=== PATIENT | male | born 1955 ===

== ENCOUNTER 2017-04-14 06:14 | Day surgery (SDC) | payer MEDICARE, OTHER ==
[2017-04-07 10:05] VITALS: BMI 34.9
[2017-04-14 07:13] LABS: BASO # 0.04 K/mm3 (0.0-2.0); BASO % 0.4 % (0.0-3.0); EOS # 0.3 (0.0-0.7); EOS % 2.7 % (1.5-5.0); GRAN # 7.01 (1.4-6.5); GRAN % 68.7 % (50.0-68.0); HEMOGLOBIN 13.7 g/dL (14.0-18.0); LYMPH # 2.2 (1.2-3.4); LYMPH % 21.9 % (22.0-35.0); MEAN CORPUSCULAR HEMOGLOBIN 26.1 pg (25.0-35.0); MEAN CORPUSCULAR HGB CONC 32.7 g/dl (31.0-37.0); MEAN PLATELET VOLUME 10.1 fl (7.0-11.0); MONO # 0.6 (0.1-0.6); MONO % 6.3 % (1.0-6.0); RBC 5.24 10^6/uL (3.5-6.1); RED CELL DISTRIBUTION WIDTH 14.5 % (11.5-14.5); WHITE BLOOD COUNT 10.2 10^3/ul (4.5-11.0)
[2017-04-14 07:21] LABS: INR 1.03 (0.93-1.08); PARTIAL THROMBOPLASTIN TIME 29.2 Seconds (25.1-36.5); PROTHROMBIN TIME 11.9 SECONDS (9.4-12.5)
[2017-04-14 07:28] LABS: BLOOD UREA NITROGEN 13 mg/dL (7-21); CALCIUM 9.5 mg/dL (8.4-10.5); GFR AFRICAN-AMERICAN > 60; GFR NON-AFRICAN AMERICAN > 60
[2017-04-14] MEDS ORDERED: Potassium Chloride 20 mEq ER Tab PO ONE ×3 (07:57→17:00)
[2017-04-14] MEDS ORDERED: Lidocaine 2% Inj (20ml) ONE (09:48)
[2017-04-14] MEDS ORDERED: HEPARIN SODIUM/NS 2,000 ML IV ONE (09:49)
[2017-04-14] MEDS ORDERED: Iohexol 350mgl/ml 50 ML ONE (10:02)
[2017-04-14] MEDS ORDERED: Iohexol 350 MG/100 ML VIAL ONE ×2 (10:02→10:44)
[2017-04-14] MEDS ORDERED: Phenylephrine 10 mg/ml Inj ONE (10:02)
[2017-04-14] MEDS ORDERED: Midazolam 2 MG/2 ML VIAL ONE ×2 (10:06→10:25)
[2017-04-14] MEDS ORDERED: Sodium Chloride 0.9% 1,000 ML IV SCH (11:15)
--- NOTE | 2017-04-14 12:44 | CARDCATH ---
PROCEDURE DATE: 04/14/2017 HISTORY: The patient is a 61-year-old male who presents with chest pain and abnormal stress test. He suffers from diabetes mellitus, hypertension and hypercholesterolemia. He is status post coronary artery bypass surgery. PROCEDURES: Left heart catheterization with coronary arteriography, bypass grafting angiogram as well as percutaneous transluminal coronary angioplasty and stent. The right femoral artery was cannulated with a 6-Jordanian sheath. There were no complications. I performed moderate sedation, which included the presence of an independent trained observer that assisted in monitoring the patient's level of consciousness and physiologic status. After administration of fentanyl and Versed, my intra-service time was 30 minutes. The findings upon catheterization revealed left ventricle contracted normally. Estimated ejection fraction is 65%. His coronary arteries revealed an occluded RCA. The left main artery revealed an 80% distal stenosis. The LAD was occluded in its mid portion. The circumflex artery revealed diffuse atherosclerosis with an obtuse marginal branch that was compromised with stenosis. The CRAIAS to the LAD was patent and provided good antegrade flow to the mid and distal LAD. The saphenous vein graft to the obtuse marginal branch-1 and the posterior lateral branch were patent and provided good antegrade flow. There was SVG to the diagonal that was patent and provided good antegrade flow. The vein graft to the RCA was patent and provided good flow to the mid and distal RCA. After the anastomotic site, there was a 99% stenosis in the RCA. The patient was started on intravenous Angiomax on the fluoroscopic guide, the guiding catheter was placed in the ostium of the SVG. An 0.014 ATW wire was used to cross the critical lesion. A 2.0 balloon was utilized to pre-dilate the lesion. This was followed by placing a 3.0 x12 mm drug-eluting stent in the lesion after the vein graft anastomotic site. Postdilatation was performed with a 3.5 noncompliant balloon. Repeat coronary arteriography revealed an excellent result with resolution of the critical stenosis and no residual stenosis. Angio-Seal was used to close the femoral artery site. The patient tolerated the procedure well. In summary, the procedure was successful for PTCA and stent of a 99% stenosis in the mid RCA with a drug-eluting stent. Patient's coronary anatomy revealed triple vessel CAD as well as a critical left main stenosis. Patent CARIAS to the LAD was noted. Patent SVG to the OM-1 and posterolateral branch. Patent SVG to the diagonal vessel. Patent SVG to the RCA with a 99% stenosis distal to the anastomotic site. Given these findings, the patient will need to remain on aspirin indefinitely and Plavix for at least a year and undergo strict cardiac risk reduction program. Ihsan Mayfield MD
--- NOTE | 2017-04-14 17:26 | CARD ---
APPROVED REPORT EKG Measurement Heart [id number] MA 180P44 [id number] <Conclusion> Normal sinus rhythm Normal ECG
--- NOTE | 2017-04-14 17:31 | CARD ---
APPROVED REPORT EKG Measurement Heart [id number] CO 174P33 [id number] <Conclusion> Normal sinus rhythm Normal ECG
[2017-04-14] MEDS: Insulin Reg-HIGH-Coverage SC SCH ×2 (17:46→22:10)
[2017-04-15 07:09] LABS: BASO # 0.04 K/mm3 (0.0-2.0); BASO % 0.4 % (0.0-3.0); EOS # 0.2 (0.0-0.7); EOS % 2.5 % (1.5-5.0); GRAN # 5.81 (1.4-6.5); GRAN % 65.4 % (50.0-68.0); HEMOGLOBIN 14.4 g/dL (14.0-18.0); LYMPH # 2.2 (1.2-3.4); LYMPH % 24.3 % (22.0-35.0); MEAN CORPUSCULAR HEMOGLOBIN 26.2 pg (25.0-35.0); MEAN CORPUSCULAR HGB CONC 32.8 g/dl (31.0-37.0); MEAN PLATELET VOLUME 9.9 fl (7.0-11.0); MONO # 0.7 (0.1-0.6); MONO % 7.4 % (1.0-6.0); RBC 5.49 10^6/uL (3.5-6.1); RED CELL DISTRIBUTION WIDTH 14.7 % (11.5-14.5); WHITE BLOOD COUNT 8.9 10^3/ul (4.5-11.0)
[2017-04-15 07:31] LABS: BLOOD UREA NITROGEN 11 mg/dL (7-21); CALCIUM 9.6 mg/dL (8.4-10.5); GFR AFRICAN-AMERICAN > 60; GFR NON-AFRICAN AMERICAN > 60
[2017-04-15] MEDS: Insulin Reg-HIGH-Coverage SC SCH ×2 (07:40→12:25)
[2017-04-15] MEDS ORDERED: Metoprolol Succinate 100 mg XL Tab PO SCH (08:00)
[2017-04-15 12:10] VITALS: BP 138/74; PULSE 70; RESP 18; TEMP 98.1; O2SAT 98
--- NOTE | 2017-04-15 16:14 | PN ---
DATE: 04/15/2017 LOCATION: The patient is in room 265, bed 2. This progress note is being dictated on behalf of Dr. Mayfield whom I am covering. REASON FOR CONSULTATION AND FOLLOWUP: Coronary artery disease, diabetes, hypertension, hypercholesterolemia, status post coronary artery bypass surgery, status post coronary angioplasty and stent insertion. SUBJECTIVE: The patient is lying flat in bed without any chest pain, shortness of breath, or palpitation. Cath site is showing no bleeding, no hematoma. Pulses are felt normally. PHYSICAL EXAMINATION: VITAL SIGNS: Blood pressure 144/90, respirations 20, pulse 88, temperature 97.8. HEENT: Head is normal. Conjunctivae normal. Nose and throat normal. NECK: JVP low. Carotid equal. THORAX: AP diameter normal. LUNGS: Clear. CARDIOVASCULAR: S1, S2. ABDOMEN: Soft, nontender. No organomegaly. EXTREMITIES: No clubbing. No cyanosis. LABORATORY DATA: Shows WBC 8.9, hemoglobin 14.4, hematocrit 43.9, platelets 197. Sodium 139, potassium 3.9, BUN 11 , creatinine 0.5. Random sugar 206 and 355. DIAGNOSES: Coronary artery disease, diabetes mellitus, hypertension, hypercholesterolemia, status post cardiac catheterization yesterday, status post angioplasty and drug-eluting stent insertion, 99% stenosis in the right coronary artery immediately distal to the saphenous vein graft for which patient had a drug-eluting stent inserted. PLAN: The patient will continue Plavix and aspirin and other medication as ordered and will follow with Dr. Mayfield. Cole Quezada MD
--- NOTE | 2017-04-15 16:42 | CARD ---
APPROVED REPORT EKG Measurement Heart [id number] NM 170P39 [id number] <Conclusion> Sinus rhythm with frequent premature ventricular complexes Prolonged QT Abnormal ECG
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
--- NOTE | 2017-04-17 09:42 | DS ---
HISTORY OF PRESENT ILLNESS: Patient is sitting up in bed, eating his lunch. He is doing quite well. He is ready to go home today. He is going to go home on his regular medications that he came in on. I discussed it with Dr. Mayfield, could be followed up in the outpatient. PHYSICAL EXAMINATION VITAL SIGNS: He has a 98.1 temperature, 70 pulse, 138/74 blood pressure, 18 respiratory rate, 90% O2 saturation on room air. HEENT: Head is atraumatic, normocephalic. HEART: Regular rate. LUNGS: Clear to auscultation. ABDOMEN: Soft. EXTREMITIES: No edema. MEDICATIONS: He is on Ecotrin, potassium, Norvasc, Plavix, Toprol. LABORATORY DATA: He has 8.9 white count, 14.4 hemoglobin, 43.9 hematocrit with 197,000 platelets. INR 1.03. He has got 139 sodium, potassium is 3.9, BUN 11, creatinine 0.5, GFR is greater than 60, blood sugar was 206, calcium is 9.6. ASSESSMENT AND PLAN: He is to going to start taking his diabetes medications because he has done with the catheterization and his diet is out of system. He will be discharged today to home, to follow up with Dr. Mayfield next week. He has coronary artery disease with catheterization and a stent placement. Aravind Mahajan DO
== END 2017-04-15 12:09 | disposition home or self-care (01) ==
LOC: CATH 06:14 → 2RNO 11:21 → CATH 04-15 12:09
PROVIDERS: ATTEND Internal Medicine Cardiovascular Disease
DX: I25.10 Atherosclerotic heart disease of native coronary artery without angina pectoris (principal); E11.59 Type 2 diabetes mellitus with other circulatory complications; E78.00 Pure hypercholesterolemia, unspecified; I10 Essential (primary) hypertension; J90 Pleural effusion, not elsewhere classified; Z79.4 Long term (current) use of insulin; Z79.82 Long term (current) use of aspirin; Z95.1 Presence of aortocoronary bypass graft; Z95.5 Presence of coronary angioplasty implant and graft; R94.39 Abnormal result of other cardiovascular function study
CPT/HCPCS: 36415 ×2; 80048 ×2; 82948 ×2; 85025 ×2; 85610; 85730; 86850; 86900; 93005 ×2; 93459; 99152; 99153; C1725 ×2; C1760; C1769 ×2; C1874; C1887 ×2; C2629; C9600; J0583; J1644; J2250; J3010; J7040 ×2; Q9967 ×3